=== PATIENT | female | born 1950 | race Caucasian/White ===

== ENCOUNTER → 2016-07-22 | Outpatient (REF) ==
[~2016-07-22] MED LIST: ACIPHEX20 MG PO; ALBUTEROL S0.4 MG/ML; CYMBALTA 60MG60 MG PO; DETROL; DETROL LA4 PO; DITROPAN XL10 MG PO; DULCOLAX TAB5 MG PO; FENTANYL 100MCG TD; HCTZ 25MG25 MG PO; IMODIUM2 MG PO; KLONOPIN 0.5MG0.5 MG PO; LAMICTAL 25MG T25 MG PO; LASIX 80MG TABL80 MG PO; LEVAQUIN 5500 MG/TAB PO; LEVOTHYROXINE0.1 MG PO; LISINOPRIL; LISINOPRIL20 MG PO; LORTAB 5/500 501 TAB PO; METRONIDAZOLE500 MG PO; MIRALAX PA17 GM/Dose PO; NYSTATIN POWDER15 GM PO; OXYCONTIN 80MG80 MG PO; OXYCONTIN80 MG PO; PERCOCET 325 MG1 TAB PO; PHENERGAN 25 TA25 MG PO; REGLAN 5MG T5 MG/TAB PO; ROBAXIN 75750 MG/TAB PO; SYNTHROID0.1 MG/TAB PO; VENTOLIN0.09 MG IH; WELLBUTRIN XL300 MG PO; ZESTRIL40 MG PO
== END ==
LOC: ZLAB.WCH 17:49
DX: Z01.89 Encounter for other specified special examinations (principal)

== ENCOUNTER → 2016-07-23 | Outpatient (REF) | LOC: ZLAB.WCH 12:01 | DX: Z01.89 Encounter for other specified special examinations (principal) ==

== ENCOUNTER → 2016-11-13 | Outpatient (REF) | LOC: ZLAB.WCH 17:57 | DX: Z01.89 Encounter for other specified special examinations (principal) ==

== ENCOUNTER 2017-06-18 13:06 | Day surgery (SDC) | payer MEDICARE, OTHER ==
[~2017-06-18] VITALS: Ht 175.3 cm; Wt 115.1 kg
[2017-06-18] MEDS ORDERED: CHANTIX 1MG1 MG PO (14:00)
[2017-06-18] MEDS ORDERED: NEURONTIN300 MG/CAP PO (14:00)
[2017-06-18] MEDS ORDERED: DIOVAN 80MG80 MG PO (14:01)
[2017-06-18 14:06] VITALS: BP 126/75; PULSE 99; TEMP 98
[2017-06-18 15:05] VITALS: BP 126/75; PULSE 60; TEMP 97.8
[2017-06-18 15:20] VITALS: BP 117/59; PULSE 56
[2017-06-18 15:35] VITALS: BP 90/50; PULSE 54
[2017-06-18 15:50] VITALS: BP 101/52; PULSE 60
== END 2017-06-18 16:10 | disposition home or self-care (01) ==
LOC: SDCO 13:06
DX: Z12.11 Encounter for screening for malignant neoplasm of colon (principal); Z86.010 Personal history of colon polyps; D12.8 Benign neoplasm of rectum; K57.30 Diverticulosis of large intestine without perforation or abscess without bleeding
CPT/HCPCS: OP; J2250; J2405; J3010; J7030

== ENCOUNTER → 2020-05-19 | Outpatient (REF) ==
[~2020-05-19] MED LIST changes: +ALEVE 220MG220 MG PO; +B-121000 MCG PO; +BACTROBAN 22GM22 GM TP; +CASTOR OIL 1 ML1 ML TOP; +CHANTIX 1MG1 MG PO; +CIPRO 500MG TA500 MG PO; +COLACE 100100 MG/CAP PO; +DIOVAN 80MG80 MG PO; +ELIQUIS 5MG PO; +FENTANYL 50MCG TD; +FERROUSAL325 MG PO; +LIDODERM 5% PATC1 EA TP; +MACROBID 1100 MG/CAP PO; +MAXIPIME2 GM IJ; +MELATIN 3 MG-11 TAB PO; +MICATIN2% TP; +MONODOX100 PO; +MUCINEX D1 TER PO; +MULTI-VITAMIN W1 TA1 PO; +MYRBETR25MG PO; +NEURONTIN300 MG/CAP PO; +NEURONTIN600 MG/TAB PO; +NICODERM C21 MG/PATC TD; +OXYCONTIN 10MG10 MG PO; +PERCOCET 325 MG1 TA2 PO; +PREDNISONE20 MG PO; +PROBIOTIC BLEN1 EACH PO; +PROTONIX 40MG T40 MG PO; +REQUIP 1MG T1 MG/TAB PO; +REQUIP2 MG PO; +RISPERDAL 0.5M0.5 MG PO; +TOPROL XL 25MG25 MG PO; +TORADOL 10MG TA10 MG PO; +TRELEGY ELLIPT1 EACH IH; +TYLENOL 325MG325 MG PO; +TYLENOL 500MG500 MG PO; +ULTRAM 50MG TAB50 MG PO; +VITAMINC1000TA; +VITAMINC1000TA PO; +ZEBETA 5MG5 MG PO
== END ==
LOC: ZLAB.WCH 15:52
DX: Z01.89 Encounter for other specified special examinations (principal)

== ENCOUNTER 2020-08-11 10:29 | Inpatient (IN) | payer MEDICARE, OTHER ==
[~2020-08-11] VITALS: Ht 175.3 cm; Wt 142.0 kg
[~2020-08-11 10:29] MED LIST changes: -ALEVE 220MG220 MG PO; -B-121000 MCG PO; -BACTROBAN 22GM22 GM TP; -CASTOR OIL 1 ML1 ML TOP; -CIPRO 500MG TA500 MG PO; -COLACE 100100 MG/CAP PO; -ELIQUIS 5MG PO; -FENTANYL 50MCG TD; -FERROUSAL325 MG PO; -LIDODERM 5% PATC1 EA TP; -MACROBID 1100 MG/CAP PO; -MAXIPIME2 GM IJ; -MELATIN 3 MG-11 TAB PO; -MICATIN2% TP; -MONODOX100 PO; -MUCINEX D1 TER PO; -MULTI-VITAMIN W1 TA1 PO; -MYRBETR25MG PO; -NEURONTIN600 MG/TAB PO; -NICODERM C21 MG/PATC TD; -OXYCONTIN 10MG10 MG PO; -PERCOCET 325 MG1 TA2 PO; -PREDNISONE20 MG PO; -PROBIOTIC BLEN1 EACH PO; -PROTONIX 40MG T40 MG PO; -REQUIP 1MG T1 MG/TAB PO; -REQUIP2 MG PO; -RISPERDAL 0.5M0.5 MG PO; -TOPROL XL 25MG25 MG PO; -TORADOL 10MG TA10 MG PO; -TRELEGY ELLIPT1 EACH IH; -TYLENOL 325MG325 MG PO; -TYLENOL 500MG500 MG PO; -ULTRAM 50MG TAB50 MG PO; -VITAMINC1000TA; -VITAMINC1000TA PO; -ZEBETA 5MG5 MG PO
[2020-08-11 11:46] VITALS: BP 109/43; PULSE 96; TEMP 98
[2020-08-11 15:06] LABS: BASO % 0.1 % (0.0-2.0); GRAN # 7.9 (1.4-6.5); HEMATOCRIT 30.7 % (37.0-47.0); HEMOGLOBIN 9.5 g/dl (12.5-16.0); LYMPH # 0.9 (1.2-3.4); LYMPH % 9.5 % (20.0-51.0); MEAN CELL VOLUME 91 fl (80.0-100.0); MEAN CORPUSCULAR HEMOGLOBIN 28 pg (27.0-31.0); MEAN CORPUSCULAR HGB CONC 31 g/dl (33.0-37.0); MEAN PLATELET VOLUME 8.7 fl (7.4-10.4); MONO # 0.1 (0.1-0.6); PLATELET COUNT 476 K/mm3 (130-400); RED BLOOD COUNT 3.39 M/mm3 (4.10-5.30); REDCELL DISTRIBUTION WIDTH-CV 15.5 % (11.5-14.5)
[2020-08-11 15:17] LABS: ALBUMIN 3.5 gm/dL (3.5-5.0); BILIRUBIN,TOTAL 0.1 mg/dL (0.0-1.0); CALCIUM 9.1 mg/dL (8.4-10.2); CREATININE, serum 0.78 (0.52-1.25); POTASSIUM 4.3 mmol/L (3.4-5.0); TOTAL PROTEIN 6.6 gm/dL (6.4-8.2)
[2020-08-11] MEDS ORDERED: TORADOL 10MG TA10 MG PO (16:12)
[2020-08-11] MEDS ORDERED: CIPRO 500MG TA500 MG PO (16:13)
[2020-08-11] MEDS ORDERED: PREDNISONE20 MG PO (16:14)
[2020-08-11] MEDS ORDERED: TYLENOL 500MG500 MG PO (16:15)
[2020-08-11] MEDS ORDERED: MONODOX100 PO (16:15)
[2020-08-11] MEDS ORDERED: BACTROBAN 22GM22 GM TP (16:17)
[2020-08-11] MEDS ORDERED: PERCOCET 325 MG1 TA2 PO (16:18)
[2020-08-11] MEDS ORDERED: TRELEGY ELLIPT1 EACH IH (16:19)
[2020-08-11] MEDS ORDERED: ELIQUIS 5MG PO (16:20)
[2020-08-11] MEDS ORDERED: MYRBETR25MG PO (16:21)
[2020-08-11] MEDS ORDERED: NEURONTIN600 MG/TAB PO (16:22)
[2020-08-11] MEDS ORDERED: LASIX 80MG TABL80 MG PO ×2 (16:24→16:25)
[2020-08-11] MEDS ORDERED: REQUIP 1MG T1 MG/TAB PO (16:26)
[2020-08-11] MEDS ORDERED: MULTI-VITAMIN W1 TA1 PO (16:27)
[2020-08-11] MEDS ORDERED: VITAMINC1000TA (16:28)
[2020-08-11] MEDS ORDERED: B-121000 MCG PO (16:29)
[2020-08-11] MEDS ORDERED: ALEVE 220MG220 MG PO ×2 (16:30→16:31)
[2020-08-11] MEDS ORDERED: TOPROL XL 25MG25 MG PO (16:34)
[2020-08-11 16:43] VITALS: BP 115/50; PULSE 96; TEMP 98
[2020-08-11 19:47] VITALS: BP 109/42; PULSE 95; TEMP 98.2
[2020-08-12] VITALS (7 sets, daily range): BP systolic 106–131; BP diastolic 38–64; PULSE 78–120; TEMP 97.5–98.7
[2020-08-13 05:22] VITALS: BP 130/56; PULSE 116; TEMP 98.8
[2020-08-13 08:14] VITALS: BP 131/55; PULSE 114; TEMP 98.2
[2020-08-13 08:27] LABS: BASO % 0.4 % (0.0-2.0); EOS # 0.2 (0.0-0.7); EOS % 2.6 % (0-4.0); GRAN # 5.2 (1.4-6.5); GRAN % 60.5 % (42.2-75.2); LYMPH # 2.4 (1.2-3.4); LYMPH % 27.9 % (20.0-51.0); MEAN CELL VOLUME 93 fl (80.0-100.0); MEAN CORPUSCULAR HGB CONC 30 g/dl (33.0-37.0); MEAN PLATELET VOLUME 8.9 fl (7.4-10.4); MONO # 0.7 (0.1-0.6); MONO % 8.1 % (1.7-9.3); PLATELET COUNT 396 K/mm3 (130-400); RED BLOOD COUNT 3.24 M/mm3 (4.10-5.30); REDCELL DISTRIBUTION WIDTH-CV 15.9 % (11.5-14.5)
[2020-08-13 08:29] LABS: HEMATOCRIT 30.1 % (37.0-47.0); MEAN CORPUSCULAR HEMOGLOBIN 28 pg (27.0-31.0)
[2020-08-13 08:38] LABS: CALCIUM 8.7 mg/dL (8.4-10.2); CREATININE, serum 0.75 (0.52-1.25); POTASSIUM 3.9 mmol/L (3.4-5.0)
[2020-08-13 10:41] LABS: IRON,SERUM 19 ug/dL (35-150)
[2020-08-13 10:50] LABS: TOTAL IRON BINDING CAPACITY 348 ug/dL (265-497)
[2020-08-13 16:55] VITALS: BP 137/51; PULSE 115; TEMP 98.6
[2020-08-13 19:47] VITALS: BP 122/43; PULSE 113; TEMP 98.8
[2020-08-14] VITALS (7 sets, daily range): BP systolic 116–130; BP diastolic 40–57; PULSE 66–119; TEMP 97.8–99
[2020-08-14 06:19] LABS: MEAN CELL VOLUME 94 fl (80.0-100.0); MEAN CORPUSCULAR HGB CONC 30 g/dl (33.0-37.0); PLATELET COUNT 366 K/mm3 (130-400); RED BLOOD COUNT 3.37 M/mm3 (4.10-5.30); REDCELL DISTRIBUTION WIDTH-CV 15.8 % (11.5-14.5)
[2020-08-14 06:39] LABS: CALCIUM 8.7 mg/dL (8.4-10.2); CREATININE, serum 0.79 (0.52-1.25); POTASSIUM 4.3 mmol/L (3.4-5.0)
[2020-08-14 06:40] LABS: HEMATOCRIT 31.8 % (37.0-47.0); HEMOGLOBIN 9.4 g/dl (12.5-16.0); MEAN CORPUSCULAR HEMOGLOBIN 28 pg (27.0-31.0)
[2020-08-14 18:42] LABS: FOLATE (FOLIC ACID) 11.3 ng/mL (2.0-20.0)
[2020-08-15 03:35] VITALS: BP 123/51; PULSE 97; TEMP 98.2
[2020-08-15 07:10] LABS: BASO % 0.2 % (0.0-2.0); EOS # 0.3 (0.0-0.7); GRAN % 79.9 % (42.2-75.2); LYMPH # 1.1 (1.2-3.4); LYMPH % 10.8 % (20.0-51.0); MEAN CELL VOLUME 91 fl (80.0-100.0); MEAN CORPUSCULAR HGB CONC 31 g/dl (33.0-37.0); MEAN PLATELET VOLUME 9.6 fl (7.4-10.4); MONO # 0.6 (0.1-0.6); MONO % 5.6 % (1.7-9.3); PLATELET COUNT 283 K/mm3 (130-400); RED BLOOD COUNT 3.44 M/mm3 (4.10-5.30); REDCELL DISTRIBUTION WIDTH-CV 15.9 % (11.5-14.5)
[2020-08-15 07:19] LABS: HEMATOCRIT 31.4 % (37.0-47.0); HEMOGLOBIN 9.6 g/dl (12.5-16.0); MEAN CORPUSCULAR HEMOGLOBIN 28 pg (27.0-31.0)
[2020-08-15 07:20] LABS: CALCIUM 8.8 mg/dL (8.4-10.2); CREATININE, serum 0.66 (0.52-1.25); POTASSIUM 4.1 mmol/L (3.4-5.0)
[2020-08-15 07:51] VITALS: BP 128/48; PULSE 120; TEMP 98.9
[2020-08-15 11:55] VITALS: BP 117/49; PULSE 97; TEMP 98.5
[2020-08-15] MEDS ORDERED: VITAMINC1000TA PO (12:31)
[2020-08-15] MEDS ORDERED: NEURONTIN600 MG/TAB PO (12:31)
[2020-08-15] MEDS ORDERED: SYNTHROID0.1 MG/TAB PO (12:31)
[2020-08-15] MEDS ORDERED: TORADOL 10MG TA10 MG PO (12:31)
[2020-08-15] MEDS ORDERED: TRELEGY ELLIPT1 EACH IH (12:31)
[2020-08-15] MEDS ORDERED: ELIQUIS 5MG PO (12:31)
[2020-08-15] MEDS ORDERED: CIPRO 500MG TA500 MG PO (12:31)
[2020-08-15] MEDS ORDERED: BACTROBAN 22GM22 GM TP (12:31)
[2020-08-15] MEDS ORDERED: PREDNISONE20 MG PO (12:31)
[2020-08-15] MEDS ORDERED: MONODOX100 PO (12:31)
[2020-08-15] MEDS ORDERED: MYRBETR25MG PO (12:31)
[2020-08-15] MEDS ORDERED: PERCOCET 325 MG1 TA2 PO (12:31)
[2020-08-15] MEDS ORDERED: B-121000 MCG PO (12:31)
[2020-08-15] MEDS ORDERED: LASIX 80MG TABL80 MG PO (12:31)
[2020-08-15] MEDS ORDERED: KLONOPIN 0.5MG0.5 MG PO (12:31)
[2020-08-15] MEDS ORDERED: TOPROL XL 25MG25 MG PO (12:31)
[2020-08-15] MEDS ORDERED: REQUIP 1MG T1 MG/TAB PO (12:31)
[2020-08-15] MEDS ORDERED: TYLENOL 500MG500 MG PO (12:31)
[2020-08-15] MEDS ORDERED: ALEVE 220MG220 MG PO (12:31)
[2020-08-15] MEDS ORDERED: MULTI-VITAMIN W1 TA1 PO (12:31)
[2020-08-15 12:46] VITALS: BP 117/49; PULSE 97; TEMP 98.5
== END 2020-08-15 14:50 | disposition short-term general hospital (02) | DRG 552 ==
LOC: MEDICAL 10:29
PROVIDERS: Physician Assistant; ADMIT Internal Medicine
PROC: 02HV33Z Insertion of Infusion Device into Superior Vena Cava, Percutaneous Approach (ICD-10-PCS; principal; 2020-08-15)
DX: M46.46 Discitis, unspecified, lumbar region (principal); L03.115 Cellulitis of right lower limb; Z68.42 Body mass index [BMI] 45.0-49.9, adult; K21.9 Gastro-esophageal reflux disease without esophagitis; I10 Essential (primary) hypertension; E66.01 Morbid (severe) obesity due to excess calories; G89.29 Other chronic pain; F41.1 Generalized anxiety disorder; G47.33 Obstructive sleep apnea (adult) (pediatric); D50.9 Iron deficiency anemia, unspecified; E03.9 Hypothyroidism, unspecified; Z96.653 Presence of artificial knee joint, bilateral; F17.210 Nicotine dependence, cigarettes, uncomplicated; K59.03 Drug induced constipation; T40.2X5A Adverse effect of other opioids, initial encounter; I48.0 Paroxysmal atrial fibrillation; F31.9 Bipolar disorder, unspecified; D64.9 Anemia, unspecified; J30.2 Other seasonal allergic rhinitis; G25.0 Essential tremor; N32.81 Overactive bladder; M48.00 Spinal stenosis, site unspecified; I89.0 Lymphedema, not elsewhere classified; J44.9 Chronic obstructive pulmonary disease, unspecified; Z79.01 Long term (current) use of anticoagulants; Z90.710 Acquired absence of both cervix and uterus; Z90.49 Acquired absence of other specified parts of digestive tract; Z86.711 Personal history of pulmonary embolism
CPT/HCPCS: 99222-AI; 99232-AI; 99239; A9585; C1751; J1170; J2060; J2270; J2543; J3370; J7040

== ENCOUNTER → 2020-11-01 | Outpatient (CLI) | payer OTHER ==
[~2020-11-01] MED LIST changes: +ALEVE 220MG220 MG PO; +B-121000 MCG PO; +BACTROBAN 22GM22 GM TP; +CASTOR OIL 1 ML1 ML TOP; +CIPRO 500MG TA500 MG PO; +COLACE 100100 MG/CAP PO; +ELIQUIS 5MG PO; +FENTANYL 50MCG TD; +FERROUSAL325 MG PO; +LIDODERM 5% PATC1 EA TP; +MACROBID 1100 MG/CAP PO; +MAXIPIME2 GM IJ; +MELATIN 3 MG-11 TAB PO; +MICATIN2% TP; +MONODOX100 PO; +MUCINEX D1 TER PO; +MULTI-VITAMIN W1 TA1 PO; +MYRBETR25MG PO; +NEURONTIN600 MG/TAB PO; +NICODERM C21 MG/PATC TD; +OXYCONTIN 10MG10 MG PO; +PERCOCET 325 MG1 TA2 PO; +PREDNISONE20 MG PO; +PROBIOTIC BLEN1 EACH PO; +PROTONIX 40MG T40 MG PO; +REQUIP 1MG T1 MG/TAB PO; +REQUIP2 MG PO; +RISPERDAL 0.5M0.5 MG PO; +TOPROL XL 25MG25 MG PO; +TORADOL 10MG TA10 MG PO; +TRELEGY ELLIPT1 EACH IH; +TYLENOL 325MG325 MG PO; +TYLENOL 500MG500 MG PO; +ULTRAM 50MG TAB50 MG PO; +VITAMINC1000TA; +VITAMINC1000TA PO; +ZEBETA 5MG5 MG PO
[2020-11-01 20:10] LABS: BASO # 0.1 (0.0-0.2); BASO % 0.7 % (0.0-2.0); EOS # 0.3 (0.0-0.7); EOS % 4.6 % (0-4.0); GRAN # 4.1 (1.4-6.5); GRAN % 57.8 % (42.2-75.2); HEMATOCRIT 41.5 % (37.0-47.0); HEMOGLOBIN 12.8 g/dl (12.5-16.0); LYMPH # 1.9 (1.2-3.4); LYMPH % 26.5 % (20.0-51.0); MEAN CELL VOLUME 91 fl (80.0-100.0); MEAN CORPUSCULAR HEMOGLOBIN 28 pg (27.0-31.0); MEAN CORPUSCULAR HGB CONC 31 g/dl (33.0-37.0); MEAN PLATELET VOLUME 10.4 fl (7.4-10.4); MONO # 0.7 (0.1-0.6); PLATELET COUNT 232 K/mm3 (130-400); RED BLOOD COUNT 4.54 M/mm3 (4.10-5.30); REDCELL DISTRIBUTION WIDTH-CV 16.6 % (11.5-14.5)
[2020-11-01 20:12] LABS: ALBUMIN 3.7 gm/dL (3.5-5.0); BILIRUBIN,TOTAL 0.4 mg/dL (0.0-1.0); C-REACTIVE PROTEIN 2.7 mg/dL (0.0-0.9); CALCIUM 9.4 mg/dL (8.4-10.2); CREATININE, serum 0.48 (0.52-1.25); POTASSIUM 3.8 mmol/L (3.4-5.0)
== END ==
LOC: ZLAB.STJ 16:45
PROVIDERS: Internal Medicine Infectious Disease
DX: M86.9 Osteomyelitis, unspecified (principal)

== ENCOUNTER → 2020-11-08 | Outpatient (REF) ==
[2020-11-08 11:24] LABS: ALBUMIN 3.4 gm/dL (3.5-5.0); BILIRUBIN,TOTAL 0.4 mg/dL (0.0-1.0); C-REACTIVE PROTEIN 2.5 mg/dL (0.0-0.9); CALCIUM 9.1 mg/dL (8.4-10.2); CREATININE, serum 0.49 (0.52-1.25); POTASSIUM 4.6 mmol/L (3.4-5.0); TOTAL PROTEIN 6.5 gm/dL (6.4-8.2)
== END ==
LOC: ZLAB.STJ 11:06
PROVIDERS: Family Medicine
DX: I48.0 Paroxysmal atrial fibrillation (principal)

== ENCOUNTER → 2020-11-10 | Outpatient (REF) ==
[2020-11-10 12:55] LABS: BASO % 0.4 % (0.0-2.0); EOS # 0.5 (0.0-0.7); EOS % 6.3 % (0-4.0); GRAN # 4.6 (1.4-6.5); GRAN % 62.9 % (42.2-75.2); HEMOGLOBIN 13.4 g/dl (12.5-16.0); LYMPH # 1.5 (1.2-3.4); LYMPH % 20.5 % (20.0-51.0); MEAN CELL VOLUME 92 fl (80.0-100.0); MEAN CORPUSCULAR HEMOGLOBIN 29 pg (27.0-31.0); MEAN CORPUSCULAR HGB CONC 31 g/dl (33.0-37.0); MEAN PLATELET VOLUME 10.7 fl (7.4-10.4); MONO # 0.7 (0.1-0.6); MONO % 9.5 % (1.7-9.3); PLATELET COUNT 240 K/mm3 (130-400); RED BLOOD COUNT 4.68 M/mm3 (4.10-5.30)
== END ==
LOC: ZLAB.STJ 12:52
PROVIDERS: Internal Medicine Infectious Disease
DX: I48.0 Paroxysmal atrial fibrillation (principal)

== ENCOUNTER 2020-12-06 10:01 | Outpatient (CLI) | payer MEDICARE, OTHER ==
[~2020-12-06 10:01] MED LIST changes: -CASTOR OIL 1 ML1 ML TOP; -COLACE 100100 MG/CAP PO; -FENTANYL 50MCG TD; -FERROUSAL325 MG PO; -LIDODERM 5% PATC1 EA TP; -MACROBID 1100 MG/CAP PO; -MAXIPIME2 GM IJ; -MELATIN 3 MG-11 TAB PO; -MICATIN2% TP; -MUCINEX D1 TER PO; -NICODERM C21 MG/PATC TD; -OXYCONTIN 10MG10 MG PO; -PROBIOTIC BLEN1 EACH PO; -PROTONIX 40MG T40 MG PO; -REQUIP2 MG PO; -RISPERDAL 0.5M0.5 MG PO; -TYLENOL 325MG325 MG PO; -ULTRAM 50MG TAB50 MG PO; -ZEBETA 5MG5 MG PO
[2020-12-06 13:13] VITALS: BP 138/77; PULSE 64; TEMP 98.2
[2020-12-06] MEDS ORDERED: PROBIOTIC BLEN1 EACH PO (13:31)
[2020-12-06] MEDS ORDERED: PROTONIX 40MG T40 MG PO (13:31)
[2020-12-06] MEDS ORDERED: COLACE 100100 MG/CAP PO (13:33)
[2020-12-06] MEDS ORDERED: RISPERDAL 0.5M0.5 MG PO (13:34)
[2020-12-06] MEDS ORDERED: OXYCONTIN 10MG10 MG PO (13:34)
[2020-12-06] MEDS ORDERED: MUCINEX D1 TER PO (13:35)
[2020-12-06] MEDS ORDERED: DITROPAN XL10 MG PO (13:36)
[2020-12-06] MEDS ORDERED: REQUIP2 MG PO (13:36)
[2020-12-06] MEDS ORDERED: FENTANYL 50MCG TD (13:36)
[2020-12-06] MEDS ORDERED: MAXIPIME2 GM IJ (13:37)
[2020-12-06] MEDS ORDERED: NICODERM C21 MG/PATC TD (13:42)
[2020-12-06] MEDS ORDERED: TRELEGY ELLIPT1 EACH IH (13:43)
[2020-12-06] MEDS ORDERED: ULTRAM 50MG TAB50 MG PO (13:44)
[2020-12-06] MEDS ORDERED: MICATIN2% TP (13:45)
[2020-12-06] MEDS ORDERED: NEURONTIN300 MG/CAP PO (13:46)
[2020-12-06] MEDS ORDERED: ELIQUIS 5MG PO (13:47)
[2020-12-06] MEDS ORDERED: TYLENOL 325MG325 MG PO (13:47)
[2020-12-06] MEDS ORDERED: CASTOR OIL 1 ML1 ML TOP (13:47)
[2020-12-06] MEDS ORDERED: ZEBETA 5MG5 MG PO (13:59)
[2020-12-06] MEDS ORDERED: B-121000 MCG PO (14:00)
[2020-12-06] MEDS ORDERED: FERROUSAL325 MG PO (14:01)
[2020-12-06] MEDS ORDERED: CYMBALTA 60MG60 MG PO (14:01)
[2020-12-06] MEDS ORDERED: SYNTHROID0.1 MG/TAB PO (14:02)
[2020-12-06] MEDS ORDERED: LIDODERM 5% PATC1 EA TP (14:02)
[2020-12-06] MEDS ORDERED: MELATIN 3 MG-11 TAB PO (14:03)
== END 2020-12-06 13:30 | disposition home or self-care (01) ==
LOC: EUO 10:01
DX: Z45.2 Encounter for adjustment and management of vascular access device (principal); M79.89 Other specified soft tissue disorders
CPT/HCPCS: C1751

== ENCOUNTER → 2020-12-06 | Outpatient (CLI) | payer MEDICARE, OTHER | LOC: ZCOL.LAB 17:49 | DX: T80.219A Unspecified infection due to central venous catheter, initial encounter (principal) ==

== ENCOUNTER → 2020-12-13 | Outpatient (CLI) | payer MEDICARE, OTHER ==
[~2020-12-13] MED LIST changes: +CASTOR OIL 1 ML1 ML TOP; +COLACE 100100 MG/CAP PO; +FENTANYL 50MCG TD; +FERROUSAL325 MG PO; +LIDODERM 5% PATC1 EA TP; +MACROBID 1100 MG/CAP PO; +MAXIPIME2 GM IJ; +MELATIN 3 MG-11 TAB PO; +MICATIN2% TP; +MUCINEX D1 TER PO; +NICODERM C21 MG/PATC TD; +OXYCONTIN 10MG10 MG PO; +PROBIOTIC BLEN1 EACH PO; +PROTONIX 40MG T40 MG PO; +REQUIP2 MG PO; +RISPERDAL 0.5M0.5 MG PO; +TYLENOL 325MG325 MG PO; +ULTRAM 50MG TAB50 MG PO; +ZEBETA 5MG5 MG PO
[2020-12-13 16:45] LABS: BASO % 0.5 % (0.0-2.0); EOS # 0.5 (0.0-0.7); EOS % 7.9 % (0-4.0); GRAN # 3.6 (1.4-6.5); GRAN % 62.5 % (42.2-75.2); HEMATOCRIT 41.8 % (37.0-47.0); HEMOGLOBIN 13.4 g/dl (12.5-16.0); LYMPH # 1.1 (1.2-3.4); MEAN CELL VOLUME 92 fl (80.0-100.0); MEAN CORPUSCULAR HEMOGLOBIN 30 pg (27.0-31.0); MEAN CORPUSCULAR HGB CONC 32 g/dl (33.0-37.0); MEAN PLATELET VOLUME 10.3 fl (7.4-10.4); MONO # 0.5 (0.1-0.6); MONO % 8.4 % (1.7-9.3); PLATELET COUNT 246 K/mm3 (130-400); RED BLOOD COUNT 4.53 M/mm3 (4.10-5.30); REDCELL DISTRIBUTION WIDTH-CV 15.4 % (11.5-14.5)
[2020-12-13 16:53] LABS: ALBUMIN 3.4 gm/dL (3.5-5.0); BILIRUBIN,TOTAL 0.2 mg/dL (0.0-1.0); C-REACTIVE PROTEIN 4.2 mg/dL (0.0-0.9); CALCIUM 9.4 mg/dL (8.4-10.2); CREATININE, serum 0.58 (0.52-1.25); POTASSIUM 4.4 mmol/L (3.4-5.0); TOTAL PROTEIN 6.2 gm/dL (6.4-8.2)
== END ==
LOC: ZLAB.STJ 13:18
PROVIDERS: Internal Medicine Infectious Disease
DX: M46.26 Osteomyelitis of vertebra, lumbar region (principal)

== ENCOUNTER 2021-01-02 23:44 | Emergency (ER) | payer MEDICARE, OTHER ==
[~2021-01-02] VITALS: Ht 170.2 cm; Wt 136.4 kg
[~2021-01-02 23:44] MED LIST changes: -MACROBID 1100 MG/CAP PO
[2021-01-02 23:49] VITALS: TEMP 98.6
[2021-01-03 01:14] LABS: COLLECTION METHOD CLEAN CATCH
[2021-01-03 01:19] LABS: BASO % 0.5 % (0.0-2.0); EOS # 0.2 (0.0-0.7); EOS % 2.6 % (0-4.0); GRAN # 5.4 (1.4-6.5); GRAN % 69.8 % (42.2-75.2); HEMOGLOBIN 13.7 g/dl (12.5-16.0); LYMPH # 1.4 (1.2-3.4); MEAN CELL VOLUME 93 fl (80.0-100.0); MEAN CORPUSCULAR HEMOGLOBIN 30 pg (27.0-31.0); MEAN CORPUSCULAR HGB CONC 33 g/dl (33.0-37.0); MEAN PLATELET VOLUME 9.3 fl (7.4-10.4); MONO # 0.7 (0.1-0.6); MONO % 8.8 % (1.7-9.3); PLATELET COUNT 270 K/mm3 (130-400); RED BLOOD COUNT 4.54 M/mm3 (4.10-5.30); REDCELL DISTRIBUTION WIDTH-CV 15.4 % (11.5-14.5)
[2021-01-03 01:23] LABS: MUCOUS Present /lpf; PH 5 (5-8); URINE APPEARANCE Hazy; URINE BACTERIA None Seen /hpf; URINE BILIRUBIN Negative (NEGATIVE); URINE BLOOD Negative (NEGATIVE); URINE COLOR Yellow; URINE GLUCOSE Negative (NEGATIVE); URINE KETONE Negative (NEGATIVE); URINE LEUKOCYTE ESTERASE 1+ (NEGATIVE); URINE NITRATE Negative (NEGATIVE); URINE PROTEIN(semi-quant) Negative (NEGATIVE); URINE RBC 0-2 /hpf; URINE UROBILINOGEN Negative (NEGATIVE)
[2021-01-03 02:05] LABS: ALBUMIN 3.7 gm/dL (3.4-4.8); BILIRUBIN,TOTAL 0.2 mg/dL (0.2-1.2); CALCIUM 9.8 mg/dL (8.4-10.2); CREATININE, serum 0.78 mg/dL (0.57-1.11); POTASSIUM 4.2 mmol/L (3.5-4.5)
[2021-01-03] MEDS ORDERED: MACROBID 1100 MG/CAP PO (02:58)
[2021-01-03 03:17] VITALS: BP 131/76; PULSE 88
== END 2021-01-03 03:40 | disposition home or self-care (01) ==
LOC: COL.ER 23:44
PROVIDERS: Physician Assistant
DX: G89.29 Other chronic pain (principal); M54.5 Low back pain; N39.0 Urinary tract infection, site not specified; E66.01 Morbid (severe) obesity due to excess calories; I48.91 Unspecified atrial fibrillation; J44.9 Chronic obstructive pulmonary disease, unspecified; K21.9 Gastro-esophageal reflux disease without esophagitis; G62.9 Polyneuropathy, unspecified; Z86.711 Personal history of pulmonary embolism; Z90.49 Acquired absence of other specified parts of digestive tract; Z90.710 Acquired absence of both cervix and uterus; Z88.1 Allergy status to other antibiotic agents; Z79.899 Other long term (current) drug therapy; Z79.891 Long term (current) use of opiate analgesic; Z79.01 Long term (current) use of anticoagulants; Z68.42 Body mass index [BMI] 45.0-49.9, adult
CPT/HCPCS: J2270; J2405

== ENCOUNTER → 2021-01-03 | Outpatient (CLI) | payer MEDICARE, OTHER ==
[~2021-01-03] MED LIST changes: +MACROBID 1100 MG/CAP PO
== END ==
LOC: COL.RAD 13:23
DX: M47.816 Spondylosis without myelopathy or radiculopathy, lumbar region (principal); M48.061 Spinal stenosis, lumbar region without neurogenic claudication; M46.46 Discitis, unspecified, lumbar region
CPT/HCPCS: A9585

== ENCOUNTER 2021-01-16 10:58 | Emergency (ER) | payer MEDICARE, OTHER ==
[~2021-01-16] VITALS: Ht 175.3 cm; Wt 136.4 kg
[2021-01-16 11:19] VITALS: BP 133/74; PULSE 106; TEMP 97.1
== END 2021-01-16 13:32 | disposition home or self-care (01) ==
LOC: COL.ER 10:58
DX: L84 Corns and callosities (principal); K21.9 Gastro-esophageal reflux disease without esophagitis; J44.9 Chronic obstructive pulmonary disease, unspecified; I48.91 Unspecified atrial fibrillation; E66.9 Obesity, unspecified; F17.210 Nicotine dependence, cigarettes, uncomplicated; Z68.41 Body mass index [BMI] 40.0-44.9, adult; Z79.899 Other long term (current) drug therapy; Z79.01 Long term (current) use of anticoagulants

== ENCOUNTER 2021-03-03 03:56 | Emergency (ER) | payer MEDICARE, OTHER ==
[~2021-03-03] VITALS: Ht 175.3 cm; Wt 140.9 kg
[2021-03-03 03:59] VITALS: TEMP 98.3
[2021-03-03 04:11] LABS: BASO % 0.2 % (0.0-2.0); EOS # 0.2 K/mm3 (0.0-0.7); EOS % 1.9 % (0-4.0); GRAN # 7.3 K/mm3 (1.4-6.5); GRAN % 75.8 % (42.2-75.2); HEMATOCRIT 41.3 % (37.0-47.0); HEMOGLOBIN 13.6 g/dl (12.5-16.0); LYMPH # 1.3 K/mm3 (1.2-3.4); MEAN CELL VOLUME 91 fl (80.0-100.0); MEAN CORPUSCULAR HEMOGLOBIN 30 pg (27.0-31.0); MEAN CORPUSCULAR HGB CONC 33 g/dl (33.0-37.0); MEAN PLATELET VOLUME 9.1 fl (7.4-10.4); MONO # 0.8 K/mm3 (0.1-0.6); MONO % 8.8 % (1.7-9.3); PLATELET COUNT 284 K/mm3 (130-400); RED BLOOD COUNT 4.52 M/mm3 (4.10-5.30); REDCELL DISTRIBUTION WIDTH-CV 14.1 % (11.5-14.5)
[2021-03-03 04:31] LABS: ALANINE AMINOTRANSFERASE 15 U/L (0-55); ALBUMIN 3.4 gm/dL (3.4-4.8); ALKALINE PHOSPHATASE 100 U/L (40-150); ANION GAP 9 mmol/L (7-16); AST,SGOT 17 U/L (5-34); BILIRUBIN,TOTAL 0.3 mg/dL (0.2-1.2); BLOOD UREA NITROGEN 18 mg/dL (10-20); CALCIUM 9.6 mg/dL (8.4-10.2); CARBON DIOXIDE 27 mmol/L (23-31); CHLORIDE 103 mmol/L (98-107); CREATININE, serum 0.79 mg/dL (0.57-1.11); GLUCOSE 124 mg/dL (70-99); SODIUM 139 mmol/L (136-145); TOTAL PROTEIN 6.9 gm/dL (6.2-8.1)
[2021-03-03 04:33] LABS: TROPONIN-I < 0.010 ng/mL (0.00-0.033)
[2021-03-03] MEDS ORDERED: PREDNISONE20 MG PO (05:04)
[2021-03-03 05:43] VITALS: BP 148/72; PULSE 94
== END 2021-03-03 05:43 | disposition home or self-care (01) ==
LOC: COL.ER 03:56
PROVIDERS: Emergency Medicine
DX: J44.1 Chronic obstructive pulmonary disease with (acute) exacerbation (principal); I48.0 Paroxysmal atrial fibrillation; Z86.711 Personal history of pulmonary embolism; Z20.822 Contact with and (suspected) exposure to COVID-19; Z79.01 Long term (current) use of anticoagulants
CPT/HCPCS: J2930

== ENCOUNTER 2021-04-30 10:50 | Emergency (ER) | payer MEDICARE, OTHER ==
[~2021-04-30] VITALS: Ht 175.3 cm; Wt 136.4 kg
[2021-04-30 10:51] VITALS: TEMP 98.2
[2021-04-30 11:41] LABS: BASO % 0.4 % (0.0-2.0); EOS # 0.1 K/mm3 (0.0-0.7); EOS % 1.6 % (0.0-4.0); GRAN # 4.9 K/mm3 (1.4-6.5); GRAN % 72.9 % (42.2-75.2); HEMATOCRIT 31.7 % (37.0-47.0); HEMOGLOBIN 10.1 g/dl (12.5-16.0); LYMPH # 1.1 K/mm3 (1.2-3.4); LYMPH % 16.2 % (20.0-51.0); MEAN CELL VOLUME 85 fl (80.0-100.0); MEAN CORPUSCULAR HEMOGLOBIN 27 pg (27-31); MEAN CORPUSCULAR HGB CONC 32 g/dl (33.0-37.0); MEAN PLATELET VOLUME 8.7 fl (7.4-10.4); MONO # 0.5 K/mm3 (0.1-0.6); PLATELET COUNT 462 K/mm3 (130-400); RED BLOOD COUNT 3.74 M/mm3 (4.10-5.30); REDCELL DISTRIBUTION WIDTH-CV 14.2 % (11.5-14.5)
[2021-04-30 11:54] LABS: COLLECTION METHOD CLEAN CATCH
[2021-04-30 12:03] LABS: PH 8 (5-8); URINE APPEARANCE Clear (CLEAR/HAZY); URINE BACTERIA None Seen /hpf (NONE SEEN); URINE BILIRUBIN Negative (NEGATIVE); URINE BLOOD Negative (NEGATIVE); URINE COLOR Yellow (YELLOW); URINE GLUCOSE Negative (NEGATIVE); URINE KETONE Trace (NEGATIVE); URINE LEUKOCYTE ESTERASE Negative (NEGATIVE); URINE NITRATE Negative (NEGATIVE); URINE PROTEIN(semi-quant) Negative (NEGATIVE); URINE RBC 0-2 /hpf (0-2); URINE UROBILINOGEN Negative (NEGATIVE)
[2021-04-30 12:05] LABS: ALBUMIN 2.8 gm/dL (3.4-4.8); BILIRUBIN,TOTAL 0.4 mg/dL (0.2-1.2); C-REACTIVE PROTEIN 4.35 mg/dL (0.00-0.50); CREATININE, serum 0.6 mg/dL (0.57-1.11); TOTAL PROTEIN 6.1 gm/dL (6.2-8.1)
[2021-04-30 14:07] VITALS: BP 156/103; PULSE 92
== END 2021-04-30 14:07 | disposition home or self-care (01) ==
LOC: COL.ER 10:50
PROVIDERS: Nurse Practitioner Primary Care
DX: R53.81 Other malaise (principal); R11.0 Nausea; G89.29 Other chronic pain; M19.90 Unspecified osteoarthritis, unspecified site; F17.210 Nicotine dependence, cigarettes, uncomplicated; Z20.822 Contact with and (suspected) exposure to COVID-19; Z79.891 Long term (current) use of opiate analgesic; Z79.899 Other long term (current) drug therapy
CPT/HCPCS: J2405; J7030

== ENCOUNTER → 2023-08-01 | Day surgery (SDC) | payer MEDICARE, MEDICAID ==
[~2023-08-01] VITALS: Ht 167.6 cm; Wt 134.0 kg
[2023-08-01] VITALS (7 sets, daily range): BP systolic 99–132; BP diastolic 47–81; PULSE 58–110; TEMP 97.1–98.2
[~2023-08-01] MED LIST changes: +ALDACTONE 25MG25 M1 PO; +CEPHALEXIN500 M1 PO; +CLARITIN 1010 MG/TAB PO; +LR 1,000 ML IV SCH; +MS CONTIN 115 MG/TAB PO; +MUCINEX 60600 MG/TA1 PO; +MYRBETRIQ; +Midazolam 2 MG/2 ML VIAL ONE; +Ondansetron 4 MG/2 ML VIAL IV PRN; +PEPCID AC 10MG10 MG PO; +TRELEGY ELLIPT1 EAC1 IH; +ZOFRAN 4MG T4 MG/TAB PO; +fentaNYL 50 MCG/ML 2 ML VIAL ONE
--- NOTE | 2023-08-01 12:08 | NUR ---
1105 MD Gamaliel talked with pt about procedure prior to coming to recovery area 1110 Pt ambulated from cart to chair with ease 1114 pt tolerating po intake well 1131 pt dressed self with ease 1135 pt verbalizes understanding discharge education and instructions 1140 pt escorted out via wheelchair - denies questions or concerns
--- NOTE | 2023-08-01 12:19 | NUR ---
1040 Pt wheeled into room via cart d/t pts difficulty ambulating at baseline 1045 pt tolerating po intake well 1050 MD Gamaliel at bedside 1052 pt verbalizes discharge instructions/education 1106 pt was dressed with one assist and transfered self to wheelchair with ease 1112 pt escorted out via wheelchair - denies questions or concerns
== END ==
LOC: SDCO 07:34
DX: Z12.11 Encounter for screening for malignant neoplasm of colon (principal); D12.5 Benign neoplasm of sigmoid colon; E66.01 Morbid (severe) obesity due to excess calories; F17.210 Nicotine dependence, cigarettes, uncomplicated; Z68.41 Body mass index [BMI] 40.0-44.9, adult
CPT/HCPCS: J2250; J3010; J7120